=== PATIENT | male | born 1950 | race Caucasian/White ===

== ENCOUNTER 2021-07-28 15:18 | Emergency (ER) | payer MEDICARE, OTHER ==
[~2021-07-28] VITALS: Ht 175.3 cm; Wt 70.0 kg
[~2021-07-28 15:18] MED LIST: LISI40TA13 PO; NORCO10T PO; PRED20TA PO; TRAM50TA2 PO
[2021-07-28 15:28] VITALS: BP 152/88
[2021-07-28] MEDS ORDERED: ketorolac trometh inj. 60 MG/2 ML VIAL IM ONE (16:10)
[2021-07-28] MEDS ORDERED: HYDR-3972 PO (16:44)
== END 2021-07-28 17:00 | disposition home or self-care (01) ==
LOC: ER 15:19
DX: M79.641 Pain in right hand (principal); M79.642 Pain in left hand; M72.0 Palmar fascial fibromatosis [Dupuytren]; I10 Essential (primary) hypertension; G89.29 Other chronic pain; Z72.89 Other problems related to lifestyle; Z98.890 Other specified postprocedural states; Z79.899 Other long term (current) drug therapy
CPT/HCPCS: 96372; 99283; J1885